=== PATIENT | male | born 1960 | race Caucasian/White ===

== ENCOUNTER 2017-08-27 21:30 | Inpatient (IN) | payer BC ==
[~2017-08-27] VITALS: Ht 180.3 cm; Wt 107.0 kg
[~2017-08-27 21:30] MED LIST: DIOVAN HCT 81 TABLET PO; ULTRAM50 MG PO
[2017-08-27 22:36] LABS: HEMATOCRIT 39.7 % (38.0-50.0); HEMOGLOBIN 14.6 G/DL (12.5-16.6); MCH 35.5 PG (29.0-34.0); MCHC 36.8 G/DL (30.0-36.0); MCV 96.6 FL (86-99); PLATELET COUNT 115 K/uL (156-360); RBC DIS.WIDTH-CV 12.7 % (11.8-14.6); RBC DIS.WIDTH-SD 44.4 % (39-53); RED BLOOD COUNT 4.11 M/uL (4.00-5.50); WHITE BLOOD COUNT 9.3 K/uL (4.1-10.2)
[2017-08-27 22:50] LABS: CHLORIDE 99 mEq/L (99-109); POTASSIUM 3.8 mEq/L (3.7-5.4); SODIUM 137 mEq/L (136-147)
[2017-08-27 22:52] LABS: GLUCOSE 97 mg/dL (70-99)
[2017-08-27 22:56] LABS: CREATININE 1.2 mg/dL (0.6-1.3); GFR ESTIMATE (CALCULATED) > 59 mL/min/ (58.99-99999); UREA NITROGEN (BUN) 19 mg/dL (9-23)
[2017-08-27 23:01] LABS: TROP-I INTERPRETATION NEGATIVE; TROPONIN-I 0.01 ng/mL (0.0-0.30)
[2017-08-27 23:34] LABS: INTER. NORMALIZED RATIO 1.2
[2017-08-27 23:37] LABS: PTT 23.1 SEC (25-37)
[2017-08-28] VITALS (35 sets, daily range): BP systolic 96–126; BP diastolic 67–83
[2017-08-28] MEDS ORDERED: DEXAMETHASONE4 MG PO (02:23)
[2017-08-28] MEDS ORDERED: RANITIDINE HCL150 M1 PO (02:24)
[2017-08-28] MEDS ORDERED: LORAZEPAM1 MG PO (02:25)
[2017-08-28] MEDS ORDERED: ZOVIRAX400 MG PO (02:26)
[2017-08-28] MEDS ORDERED: NEURONTIN300 MG PO (02:27)
[2017-08-28] MEDS ORDERED: COMPAZINE10 MG PO (02:29)
[2017-08-28] MEDS ORDERED: DIFLUCAN200 MG PO (02:30)
[2017-08-28] MEDS ORDERED: REVLIMID25 MG PO (02:31)
[2017-08-28 02:38] LABS: BASE EXCESS -1.8 mEq/L (-3 to +3); BICARBONATE 24.3 mEq/L (22-26); CARBOXY HGB 1.6 % (0-5); COMMENTS - BLOOD GASES C+A+; DEVICE VENT; FI02 100 %; MECHANICAL RATE 20 resp/min; METHEMOGLOBIN 1.4 % (0-1.5); MODE AC; PCO2 45 mm Hg (35-45); PEEP 15 CM/H20; PO2 428 mm Hg (80-100); SITE LR; TIDAL VOLUME 500 ML; TOTAL RESP RATE 28 resp/min; pH 7.34 (7.35-7.45)
[2017-08-28 06:17] LABS: BASOPHIL (%) 0.2 % (0-1); EOSINOPHIL COUNT 0.3 K/uL (0-0.3); HEMATOCRIT 42.4 % (38.0-50.0); HEMOGLOBIN 14.5 G/DL (12.5-16.6); LYMPHOCYTE (%) 6.5 % (15-42); LYMPHOCYTE COUNT 0.9 K/uL (1.0-2.8); MCH 32.9 PG (29.0-34.0); MCHC 34.2 G/DL (30.0-36.0); MCV 96.1 FL (86-99); MONOCYTE COUNT 1.5 K/uL (0-0.8); NEUTROPHIL (%) 78.3 % (45-76); NEUTROPHIL COUNT 10.7 K/uL (1.8-6.4); NRBC (%) 0.1 /100 WBC (0-0); PLATELET COUNT 148 K/uL (156-360); RBC DIS.WIDTH-CV 12.7 % (11.8-14.6); RBC DIS.WIDTH-SD 44.9 % (39-53); RED BLOOD COUNT 4.41 M/uL (4.00-5.50); WHITE BLOOD COUNT 13.7 K/uL (4.1-10.2)
[2017-08-28 06:35] LABS: CHLORIDE 99 MEQ/L (99-109); CREATININE 1.1 MG/DL (0.6-1.3); GFR ESTIMATE (CALCULATED) > 59 mL/min/ (58.99-99999); GLUCOSE 141 mg/dL (70-99); POTASSIUM 4.2 MEQ/L (3.7-5.4); SODIUM 134 MEQ/L (136-147); UREA NITROGEN (BUN) 19 mg/dL (9-23)
[2017-08-28 07:04] LABS: TROP-I INTERPRETATION POSITIVE
[2017-08-28 07:05] LABS: TROPONIN-I 216.74 ng/mL (0.0-0.30)
[2017-08-28 08:45] LABS: MAGNESIUM 1.7 mg/dl (1.3-2.7)
[2017-08-28 14:02] LABS: TROP-I INTERPRETATION POSITIVE
[2017-08-28 14:03] LABS: TROPONIN-I 204.19 ng/mL (0.0-0.30)
[2017-08-28 18:42] LABS: TROP-I INTERPRETATION POSITIVE; TROPONIN-I > 50.00 ng/mL (0.0-0.30)
[2017-08-29] VITALS (14 sets, daily range): BP systolic 85–119; BP diastolic 58–77
[2017-08-29 09:14] LABS: HDL CHOLESTEROL 54 MG/DL (Desirable>=40); LDL CHOLESTEROL 25 mg/dL (Desirable<100); NON-HDL CHOLESTEROL 53 mg/dL (Desirable<160); TOTAL CHOLESTEROL 107 mg/dL (Desirable<200); TRIGLYCERIDES 141 MG/DL (Normal: <150)
[2017-08-29 09:56] LABS: HEMOGLOBIN A1c (GLYCOHEMOGLOB) 5.5 % (Below 5.7)
[2017-08-29 10:34] LABS: BASOPHIL (%) 0.1 % (0-1); EOSINOPHIL (%) 1.1 % (0-5); EOSINOPHIL COUNT 0.1 K/uL (0-0.3); HEMATOCRIT 41.7 % (38.0-50.0); IMMATURE GRANULOCYTE (%) 0.8 % (0.0-0.7); LYMPHOCYTE (%) 11.2 % (15-42); LYMPHOCYTE COUNT 1.4 K/uL (1.0-2.8); MCH 33.2 PG (29.0-34.0); MCHC 33.6 G/DL (30.0-36.0); MCV 98.8 FL (86-99); MONOCYTE (%) 9.4 % (3-12); MONOCYTE COUNT 1.2 K/uL (0-0.8); NEUTROPHIL (%) 77.4 % (45-76); NEUTROPHIL COUNT 9.5 K/uL (1.8-6.4); RBC DIS.WIDTH-CV 13.1 % (11.8-14.6); RBC DIS.WIDTH-SD 46.9 % (39-53); RED BLOOD COUNT 4.22 M/uL (4.00-5.50); WHITE BLOOD COUNT 12.3 K/uL (4.1-10.2)
[2017-08-29 10:53] LABS: PLAT.SUFFICIENCY DECREASED
[2017-08-29 11:04] LABS: PLATELET COUNT 101 K/uL (156-360)
[2017-08-29 11:06] LABS: TROP-I INTERPRETATION POSITIVE
[2017-08-29 11:15] LABS: ALBUMIN 2.9 G/DL (3.2-4.8); CHLORIDE 100 MEQ/L (99-109); MAGNESIUM 1.8 mg/dl (1.3-2.7); SODIUM 137 MEQ/L (136-147)
[2017-08-29 11:22] LABS: ALKALINE PHOSPHATASE 48 IU/L (3-129); ALT (GPT) 92 IU/L (3-49); AST (GOT) 181 IU/L (2-34); CREATININE 1.1 MG/DL (0.6-1.3); GFR ESTIMATE (CALCULATED) > 59 mL/min/ (58.99-99999); GLUCOSE 126 mg/dL (70-99); PHOSPHORUS 2.4 mg/dL (2.5-4.9); TOTAL PROTEIN 6.2 G/DL (6.4-8.3); UREA NITROGEN (BUN) 16 mg/dL (9-23)
[2017-08-30] VITALS (11 sets, daily range): BP systolic 80–110; BP diastolic 53–73
[2017-08-30 05:42] LABS: HEMATOCRIT 35.4 % (38.0-50.0); HEMOGLOBIN 12.3 G/DL (12.5-16.6); MCH 34.2 PG (29.0-34.0); MCHC 34.7 G/DL (30.0-36.0); MCV 98.3 FL (86-99); PLATELET COUNT 86 K/uL (156-360); RBC DIS.WIDTH-CV 12.8 % (11.8-14.6); RBC DIS.WIDTH-SD 45.7 % (39-53); WHITE BLOOD COUNT 10.3 K/uL (4.1-10.2)
[2017-08-30 06:10] LABS: CHLORIDE 100 MEQ/L (99-109); GFR ESTIMATE (CALCULATED) > 59 mL/min/ (58.99-99999); GLUCOSE 103 mg/dL (70-99); MAGNESIUM 2.1 mg/dl (1.3-2.7); POTASSIUM 3.8 MEQ/L (3.7-5.4); SODIUM 138 MEQ/L (136-147); UREA NITROGEN (BUN) 17 mg/dL (9-23)
[2017-08-31 04:58] VITALS: BP 96/60
[2017-08-31 05:28] LABS: HEMATOCRIT 33.5 % (38.0-50.0); HEMOGLOBIN 11.6 G/DL (12.5-16.6); MCH 33.7 PG (29.0-34.0); MCHC 34.6 G/DL (30.0-36.0); MCV 97.4 FL (86-99); PLATELET COUNT 91 K/uL (156-360); RBC DIS.WIDTH-CV 12.9 % (11.8-14.6); RBC DIS.WIDTH-SD 45.2 % (39-53); RED BLOOD COUNT 3.44 M/uL (4.00-5.50); WHITE BLOOD COUNT 8.2 K/uL (4.1-10.2)
[2017-08-31 05:55] LABS: CHLORIDE 103 MEQ/L (99-109); CREATININE 0.9 MG/DL (0.6-1.3); GFR ESTIMATE (CALCULATED) > 59 mL/min/ (58.99-99999); GLUCOSE 104 mg/dL (70-99); POTASSIUM 3.6 MEQ/L (3.7-5.4); SODIUM 138 MEQ/L (136-147); UREA NITROGEN (BUN) 16 mg/dL (9-23)
[2017-08-31 07:11] VITALS: BP 85/54
[2017-08-31 11:15] VITALS: BP 97/66
[2017-08-31 15:22] VITALS: BP 98/59
[2017-08-31 20:13] VITALS: BP 105/64
[2017-09-01] VITALS (7 sets, daily range): BP systolic 91–114; BP diastolic 55–71
[2017-09-01 08:52] LABS: BASOPHIL (%) 0.3 % (0-1); EOSINOPHIL COUNT 0.8 K/uL (0-0.3); HEMATOCRIT 37.2 % (38.0-50.0); HEMOGLOBIN 12.8 G/DL (12.5-16.6); IMMATURE GRANULOCYTE (%) 1.6 % (0.0-0.7); LYMPHOCYTE (%) 20.2 % (15-42); LYMPHOCYTE COUNT 1.4 K/uL (1.0-2.8); MCH 34.1 PG (29.0-34.0); MCHC 34.4 G/DL (30.0-36.0); MCV 99.2 FL (86-99); MONOCYTE (%) 10.7 % (3-12); MONOCYTE COUNT 0.8 K/uL (0-0.8); NEUTROPHIL (%) 55.2 % (45-76); NEUTROPHIL COUNT 3.9 K/uL (1.8-6.4); PLATELET COUNT 117 K/uL (156-360); RBC DIS.WIDTH-CV 13.2 % (11.8-14.6); RBC DIS.WIDTH-SD 47.2 % (39-53); RED BLOOD COUNT 3.75 M/uL (4.00-5.50)
[2017-09-01 09:15] LABS: CHLORIDE 103 MEQ/L (99-109); CREATININE 0.9 MG/DL (0.6-1.3); GFR ESTIMATE (CALCULATED) > 59 mL/min/ (58.99-99999); GLUCOSE 87 mg/dL (70-99); POTASSIUM 3.9 MEQ/L (3.7-5.4); SODIUM 138 MEQ/L (136-147); UREA NITROGEN (BUN) 14 mg/dL (9-23)
[2017-09-01 15:37] LABS: Heparin Induced Plt Ab Negative (Negative)
[2017-09-02 04:08] VITALS: BP 98/52
[2017-09-02 06:23] LABS: BASOPHIL (%) 0.6 % (0-1); EOSINOPHIL (%) 9.4 % (0-5); EOSINOPHIL COUNT 0.6 K/uL (0-0.3); HEMATOCRIT 35.7 % (38.0-50.0); HEMOGLOBIN 12.3 G/DL (12.5-16.6); IMMATURE GRANULOCYTE (%) 2.4 % (0.0-0.7); LYMPHOCYTE (%) 24.4 % (15-42); LYMPHOCYTE COUNT 1.6 K/uL (1.0-2.8); MCH 34.6 PG (29.0-34.0); MCHC 34.5 G/DL (30.0-36.0); MCV 100.6 FL (86-99); MONOCYTE (%) 11.3 % (3-12); MONOCYTE COUNT 0.8 K/uL (0-0.8); NEUTROPHIL (%) 51.9 % (45-76); NEUTROPHIL COUNT 3.5 K/uL (1.8-6.4); NRBC (%) 0.4 /100 WBC (0-0); PLATELET COUNT 127 K/uL (156-360); RBC DIS.WIDTH-CV 13.6 % (11.8-14.6); RBC DIS.WIDTH-SD 48.8 % (39-53); RED BLOOD COUNT 3.55 M/uL (4.00-5.50); WHITE BLOOD COUNT 6.7 K/uL (4.1-10.2)
[2017-09-02 06:57] LABS: CHLORIDE 105 MEQ/L (99-109); CREATININE 0.9 MG/DL (0.6-1.3); GFR ESTIMATE (CALCULATED) > 59 mL/min/ (58.99-99999); GLUCOSE 90 mg/dL (70-99); POTASSIUM 4.2 MEQ/L (3.7-5.4); SODIUM 139 MEQ/L (136-147); UREA NITROGEN (BUN) 15 mg/dL (9-23)
[2017-09-02 07:33] LABS: UFH SRA Result Negative (Negative)
[2017-09-02 08:07] VITALS: BP 94/55
[2017-09-02 11:13] VITALS: BP 109/66
[2017-09-02] MEDS ORDERED: NITROSTAT0.4 MG SL (14:47)
[2017-09-02] MEDS ORDERED: ATORVASTATIN CA40 MG PO (14:47)
[2017-09-02] MEDS ORDERED: ASPIRIN81 M2 PO (14:47)
[2017-09-02] MEDS ORDERED: XARELTO20 MG PO (14:47)
[2017-09-02] MEDS ORDERED: CLOPIDOGREL75 MG PO (14:47)
[2017-09-02] MEDS ORDERED: LOPRESSOR25 MG PO (14:47)
[2017-09-02] MEDS ORDERED: AUGMENTIN875 MG PO (14:47)
== END 2017-09-02 15:25 | disposition home or self-care (01) | DRG 248 ==
LOC: EME → EDBD 21:30 → ENRESERV 23:16 → EME 23:49 → CATH 23:49 → ENRESERV 23:54 → 2SOUTH 08-28 01:02 → 4WEST 08-28 01:02 → 4EAST 08-28 01:02 → 4WEST 08-28 01:50 → ENRESERV 08-29 13:29 → 4EAST 08-30 21:48
PROVIDERS: Emergency Medicine; Internal Medicine; Internal Medicine Critical Care Medicine; Internal Medicine Interventional Cardiology; Specialist
DX: I21.09 ST elevation (STEMI) myocardial infarction involving other coronary artery of anterior wall (principal); J18.9 Pneumonia, unspecified organism; J96.01 Acute respiratory failure with hypoxia; R57.0 Cardiogenic shock; I47.2 Ventricular tachycardia; I25.10 Atherosclerotic heart disease of native coronary artery without angina pectoris; I42.9 Cardiomyopathy, unspecified; J81.0 Acute pulmonary edema; C90.00 Multiple myeloma not having achieved remission; D69.6 Thrombocytopenia, unspecified; I27.20 Pulmonary hypertension, unspecified; I10 Essential (primary) hypertension; E66.9 Obesity, unspecified; Z68.33 Body mass index [BMI] 33.0-33.9, adult; Z82.49 Family history of ischemic heart disease and other diseases of the circulatory system; Z92.21 Personal history of antineoplastic chemotherapy; I34.0 Nonrheumatic mitral (valve) insufficiency
CPT/HCPCS: 31500; 36600; 71045; 71046; 80048; 80053; 80061; 82803; 82948; 83036; 83735; 83880; 84100; 84484; 85025; 85027; 85347; 85379; 85610; 85730; 86022 90; 87070; 87205; 87502; 87641; 93005; 93306; 94002; 94003; 94010; 94640; 94640 76; 94760; 94799; 99202; 99281; 99285; C1725; C1757; C1769; C1874; C1887; J0153; J0295; J0461; J1644; J1940; J2250; J2270; J2704; J3010; J3246; J7030; J7050; S0028